=== PATIENT | male | born 1945 | race Caucasian/White ===

== ENCOUNTER 2023-06-02 19:05 | Emergency (ER) | payer MEDICARE, SELFPAY ==
[2023-06-02 19:20] VITALS: BP 141/87; PULSE 101; RESP 19; TEMP 37.6; O2SAT 98; BMI 34.9
--- NOTE | 2023-06-02 19:37 | EXP.UTC ---
Discharge Plan Disposition Patient Disposition: Home, Self-Care Condition: Good Prescriptions Prescriptions: No Action enalapril maleate 20 mg tablet 20 mg PO DAILY temazepam 15 mg capsule 15 mg PO DAILY Patient Comments: TAKE 1 CAPSULE BY MOUTH AT NIGHT NEEDED FOR SLEEP diltiazem HCl 300 mg capsule,extended release 24hr 300 mg PO DAILY hydralazine 50 mg tablet 50 mg PO DAILY rosuvastatin 10 mg tablet 10 mg PO DAILY Referrals Follow up/Referrals: Dannie Pisano MD [Primary Care Provider] - See instructions Activity Restrictions/Add. Instructions Additional Instructions/Restrictions: *Monitor Temp, Over the counter Motrin or Tylenol as directed/as needed Tylenol every 4 hours and Motrin every 6 hours (as long as your family doctor has told you that you can take it) for fever or pain. and straight to ER if unable to lower temp less than 101.0 after medication given *Warm salt water gargles may help to soothe the throat *Throat Lozenges? *Warm fluids like tea with honey may help to soothe the throat? *Sleep elevated *Humidifier/Vaporizer Follow up IMMEDIATELY for new or worsening symptoms or no Noticeable improvement over the next 48-72 hours. 911 for difficulty breathing or swallowing You were tested for today for COVID19 your test result should be back in the next 24hrs, you may check your results on the [facility] if you are positive you must Quarantine for 5 days Clinical Impressions Clinical Impression: Viral syndrome Instructions Patient Instructions: DI for Viral Syndrome, DI for COVID-19 (Suspected or Confirmed ) Discharge ED Provider: Judie Smith [facility] HPI General Stated complaint: cough, watery eyes, sneezing Time Seen by Provider: 06/02/23 19:37 History of Present Illness Provider Complaint: Patient states that for the last couple of days he has been having watery eyes, feeling achy all over, nasal congestion and over all not feeling well States that he called and spoke with his PCP and they sent him in some amoxil states that he has been on it a couple of days and not helped States that he took a home COVID test and it looked positive so he came in to get checked wanting to make sure he did it right Related Data Home Medications Medication Instructions Recorded Confirmed diltiazem HCl 300 mg 300 mg PO DAILY 06/02/23 06/02/23 capsule,extended release 24 hr enalapril maleate 20 mg tablet 20 mg PO DAILY 06/02/23 06/02/23 hydralazine 50 mg tablet 50 mg PO DAILY 06/02/23 06/02/23 rosuvastatin 10 mg tablet 10 mg PO DAILY 06/02/23 06/02/23 temazepam 15 mg capsule 15 mg PO DAILY 06/02/23 06/02/23 Allergies Allergy/AdvReac Type Severity Reaction Status Date / Time No Known Allergies Allergy Verified 06/02/23 19:43 [facility] Disclaimer: The information contained in this section may have been updated after the patient was seen, as this information can be updated by other users. Medical History (Updated 06/02/23 @ 19:43 by Nesha Chaves RN) Hyperlipidemia Hypertension Surgical History (Updated 06/02/23 @ 19:43 by Nesha Chaves RN) History of cardiac catheterization History of cholecystectomy History of open heart surgery Social History Smoking Status: Unknown if ever smoked alcohol intake: never current occupational status: retired Travel in the last 8 weeks: None ROS Obtained: Yes All systems reviewed & no additional complaints except as documented and Yes Systems reviewed as appropriate & no additional complaints except as documented Constitutional Constitutional: Reports system reviewed and no additional complaints, except as documented, Reports as per HPI, Reports body ache, Reports chills and Reports headache(s) Eyes Eyes: Reports system reviewed and no additional complaints, except as documented, Reports as per HPI and Reports eye discharge (watery ey
[2023-06-02 19:41] LABS: UTC Influenza A Antigen Negative (Negative); UTC Influenza B Antigen Negative (Negative)
--- NOTE | 2023-06-02 19:48 | EXP.UTC ---
Discharge Plan Disposition Patient Disposition: Home, Self-Care Condition: Good Prescriptions Prescriptions: No Action enalapril maleate 20 mg tablet 20 mg PO DAILY temazepam 15 mg capsule 15 mg PO DAILY Patient Comments: TAKE 1 CAPSULE BY MOUTH AT NIGHT NEEDED FOR SLEEP diltiazem HCl 300 mg capsule,extended release 24hr 300 mg PO DAILY hydralazine 50 mg tablet 50 mg PO DAILY rosuvastatin 10 mg tablet 10 mg PO DAILY Referrals Follow up/Referrals: Dannie Pisano MD [Primary Care Provider] - See instructions Activity Restrictions/Add. Instructions Additional Instructions/Restrictions: *Monitor Temp, Over the counter Motrin or Tylenol as directed/as needed Tylenol every 4 hours and Motrin every 6 hours (as long as your family doctor has told you that you can take it) for fever or pain. and straight to ER if unable to lower temp less than 101.0 after medication given *Warm salt water gargles may help to soothe the throat *Throat Lozenges? *Warm fluids like tea with honey may help to soothe the throat? *Sleep elevated *Humidifier/Vaporizer Follow up IMMEDIATELY for new or worsening symptoms or no Noticeable improvement over the next 48-72 hours. 911 for difficulty breathing or swallowing You were tested for today for COVID19 your test result should be back in the next 24hrs, you may check your results on the [facility] My Health Portal if you are positive you must Quarantine for 5 days Clinical Impressions Clinical Impression: Viral syndrome Instructions Patient Instructions: DI for Viral Syndrome, DI for COVID-19 (Suspected or Confirmed ) Discharge ED Provider: Judie Smith [facility] [place] HPI General Stated complaint: cough, watery eyes, sneezing Mode of Arrival: Ambulatory Source of Information: Patient Limitations: No Limitations Time Seen by Provider: 06/02/23 19:37 Description of Symptoms (Recalled from Triage Doc. by RN): PATIENT C/O BODY ACHES, RUNNY NOSE AND COUGH X 3 DAYS HEENT Symptoms (Recalled from RN notes): Yes Resp Symptoms (Recalled from RN notes): Yes Skin Symptoms (Recalled from RN notes): No MS Symptoms (Recalled from RN notes): No Functional Status (Recalled from RN notes): WNL Related Data Home Medications Medication Instructions Recorded Confirmed diltiazem HCl 300 mg 300 mg PO DAILY 06/02/23 06/02/23 capsule,extended release 24 hr enalapril maleate 20 mg tablet 20 mg PO DAILY 06/02/23 06/02/23 hydralazine 50 mg tablet 50 mg PO DAILY 06/02/23 06/02/23 rosuvastatin 10 mg tablet 10 mg PO DAILY 06/02/23 06/02/23 temazepam 15 mg capsule 15 mg PO DAILY 06/02/23 06/02/23 Allergies Allergy/AdvReac Type Severity Reaction Status Date / Time No Known Allergies Allergy Verified 06/02/23 19:43 Worker's Comp Is this a Worker's Comp case?: No [facility] Disclaimer: The information contained in this section may have been updated after the patient was seen, as this information can be updated by other users. Medical History (Updated 06/02/23 @ 19:43 by Nesha Chaves RN) Hyperlipidemia Hypertension Surgical History (Updated 06/02/23 @ 19:43 by Nesha Chaves RN) History of cardiac catheterization History of cholecystectomy History of open heart surgery Social History (Updated 06/02/23 @ 19:48 by Judie Smith APRN) Smoking Status: Unknown if ever smoked alcohol intake: never current occupational status: retired Travel in the last 8 weeks: None ROS Obtained: Yes All systems reviewed & no additional complaints except as documented and Yes Systems reviewed as appropriate & no additional complaints except as documented Constitutional Constitutional: Reports system reviewed and no additional complaints, except as documented, Reports as per HPI, Reports body ache, Reports chills and Reports fever(s) Eyes Eyes: Reports eye discharge (watery eyes) ENT Ears, Nose, Mouth, and Throat:
[2023-06-02 19:55] VITALS: BP 141/87; PULSE 101; RESP 19; TEMP 37.6; O2SAT 98
== END 2023-06-02 20:00 | disposition home or self-care (01) ==
PROVIDERS: Emergency Provider Nurse Practitioner; PCP Internal Medicine
DX: U07.1 COVID-19 (principal); R51.9 Headache, unspecified; R09.81 Nasal congestion; M79.18 Myalgia, other site; R68.83 Chills (without fever); I10 Essential (primary) hypertension; E78.5 Hyperlipidemia, unspecified
CPT/HCPCS: 87635; 87804; 99203; 99212; G0463